=== PATIENT | female | born 1970 | race Caucasian/White ===

== ENCOUNTER 2018-11-10 14:33 | Inpatient (IN) | payer OTHER ==
[2018-11-10] MEDS ORDERED: NITROGLYCERIN (SL) 0.4 MG TAB SL (16:00)
[2018-11-10] MEDS ORDERED: hydrALAzine 20 MG INJ IV (16:00)
[2018-11-10] MEDS ORDERED: morphine 2 MG INJ IV (16:00)
[2018-11-10] MEDS ORDERED: NACL 0.9% 3 ML SYG IV (16:00)
[2018-11-10] MEDS ORDERED: ONDANSETRON 4 MG INJ IV (16:00)
[2018-11-10] MEDS ORDERED: ACETAMINOPHEN 325 MG TAB PO (16:00)
[2018-11-10] MEDS ORDERED: DOCUSATE SODIUM 100 MG CAP PO (16:00)
[2018-11-10] MEDS ORDERED: MAGNESIUM HYDROXIDE 30ML CUP PO (16:00)
[2018-11-10] MEDS ORDERED: LORAZEPAM 2 MG INJ IV (16:00)
[2018-11-10] MEDS ORDERED: HYDROCODONE/APAP (5/325) TAB PO (16:00)
[2018-11-10] MEDS ORDERED: ALBUTEROL/IPRATROPIUM (NEB) 3 ML AMP HHN (16:00)
[2018-11-10 16:41] LABS: INR 0.91; PROTIME 12.4 Sec (11.9-14.9)
[2018-11-10 16:42] LABS: PARTIAL THROMBOPLASTIN TIME 27.8 Sec (23.0-35.0)
[2018-11-10 17:00] LABS: FREE T4 (FREE THYROXINE) 1.26 ng/dl (0.64-1.79)
[2018-11-10] MEDS: SOD CHLORIDE 0.45% 1,000 ML IV (17:04)
[2018-11-10] MEDS: HEPARIN 5,000 UNIT/1 ML VIAL SC (22:04)
[2018-11-11 05:00] LABS: ADD MAN DIFF? NO
[2018-11-11 05:08] LABS: BASOPHILS % 0.7 % (0.0-2.0); EOSINOPHILS # 0.1 10^3/ul (0.0-0.5); EOSINOPHILS % 3.4 % (0.0-7.0); HEMATOCRIT 34.9 % (37.0-47.0); LYMPHOCYTES # 1.2 10^3/ul (0.8-2.9); LYMPHOCYTES % 28.5 % (15.0-51.0); MEAN CORPUSCULAR HEMOGLOBIN 24.6 pg (29.0-33.0); MEAN CORPUSCULAR HGB CONC 31.5 g/dl (32.0-37.0); MEAN CORPUSCULAR VOLUME 77.9 fl (82.0-101.0); MEAN PLATELET VOLUME 11.1 fl (7.4-10.4); MONOCYTE # 0.3 10^3/ul (0.3-0.9); MONOCYTES % 8.4 % (0.0-11.0); NEUTROPHIL # 2.4 10^3/ul (1.6-7.5); NEUTROPHILS % 58.8 % (39.0-77.0); PLATELET COUNT 249 10^3/UL (140-415); RED BLOOD COUNT 4.48 10^6/ul (4.20-5.40); RED CELL DISTRIBUTION WIDTH 16.8 % (11.5-14.5)
[2018-11-11 05:08] LABS: WHITE BLOOD COUNT 4.1 10^3/ul (4.8-10.8)
[2018-11-11] MEDS: SOD CHLORIDE 0.45% 1,000 ML IV ×3 (05:23→22:31)
[2018-11-11] MEDS: PANTOPRAZOLE (EC) 40 MG TAB PO (05:24)
[2018-11-11 05:39] LABS: ALANINE AMINOTRANSFERASE 908 IU/L (13-69); ALBUMIN 3.4 g/dl (3.3-4.9); ALBUMIN/GLOBULIN RATIO 1.06; ALKALINE PHOSPHATASE 223 IU/L (42-121); ANION GAP 6 (5-13); BILIRUBIN,INDIRECT 1.4 mg/dl (0-1.1); BILIRUBIN,TOTAL 1.4 mg/dl (0.2-1.3); BLOOD UREA NITROGEN 8 mg/dl (7-20); CALCIUM 9.3 mg/dl (8.4-10.2); CARBON DIOXIDE 28 mmol/L (21-31); CHLORIDE 105 mmol/L (97-110); CREATININE 0.51 mg/dl (0.44-1.00); Estimated GFR > 60 mL/min (>60); GLUCOSE 96 mg/dl (70-220); POTASSIUM 3.2 mmol/L (3.5-5.1); SODIUM 139 mmol/L (135-144); TOTAL PROTEIN 6.6 g/dl (6.1-8.1)
[2018-11-11 05:44] LABS: PHOSPHORUS 3.1 mg/dl (2.5-4.9)
[2018-11-11 05:44] LABS: CHOL/HDL RATIO 2.4 RATIO; CHOLESTEROL 187 mg/dl (100-200); HDL CHOLESTEROL 77 mg/dl (37-92); LDL CHOLESTEROL,CALCULATED 83 mg/dl; MAGNESIUM 2.2 mg/dl (1.7-2.5); TRIGLYCERIDES 133 mg/dl (0-149)
[2018-11-11 05:53] LABS: ASPARTATE AMINO TRANSFERASE 855 IU/L (15-46)
[2018-11-11] MEDS: POTASSIUM CHLORIDE (SR) 20 MEQ TAB PO (06:18)
[2018-11-11 06:23] LABS: HEMOGLOBIN A1C 5.5 % (0-5.9)
[2018-11-11] MEDS: HEPARIN 5,000 UNIT/1 ML VIAL SC ×2 (08:54→21:27)
[2018-11-11] MEDS ORDERED: POTASSIUM CHLORIDE (SR) 20 MEQ TAB PO (12:43)
[2018-11-11 13:07] LABS: ALANINE AMINOTRANSFERASE 916 IU/L (13-69); ALBUMIN 3.5 g/dl (3.3-4.9); ALKALINE PHOSPHATASE 247 IU/L (42-121); BILIRUBIN,INDIRECT 1.3 mg/dl (0-1.1); BILIRUBIN,TOTAL 1.3 mg/dl (0.2-1.3); TOTAL PROTEIN 6.5 g/dl (6.1-8.1)
[2018-11-11 13:14] LABS: ASPARTATE AMINO TRANSFERASE 874 IU/L (15-46)
[2018-11-11 14:45] LABS: HEPATITIS B SURFACE ANTIGEN NEGATIVE (NEGATIVE)
[2018-11-11 15:03] LABS: HEPATITIS B CORE ANTIBODY NEGATIVE (NEGATIVE); HEPATITIS C VIRAL ANTIBODY NEGATIVE (NEGATIVE)
[2018-11-11 15:43] LABS: HEPATITIS B SURFACE ANTIBODY NEGATIVE (NEGATIVE)
[2018-11-12 05:15] LABS: ADD MAN DIFF? NO
[2018-11-12 05:33] LABS: BASOPHILS % 0.6 % (0.0-2.0); EOSINOPHILS # 0.3 10^3/ul (0.0-0.5); EOSINOPHILS % 4.8 % (0.0-7.0); HEMATOCRIT 36.1 % (37.0-47.0); HEMOGLOBIN 11.4 g/dl (12.0-16.0); LYMPHOCYTES # 1.8 10^3/ul (0.8-2.9); LYMPHOCYTES % 35.1 % (15.0-51.0); MEAN CORPUSCULAR HEMOGLOBIN 24.8 pg (29.0-33.0); MEAN CORPUSCULAR HGB CONC 31.6 g/dl (32.0-37.0); MEAN CORPUSCULAR VOLUME 78.6 fl (82.0-101.0); MEAN PLATELET VOLUME 11.2 fl (7.4-10.4); MONOCYTE # 0.5 10^3/ul (0.3-0.9); MONOCYTES % 9.4 % (0.0-11.0); NEUTROPHIL # 2.6 10^3/ul (1.6-7.5); NEUTROPHILS % 49.7 % (39.0-77.0); PLATELET COUNT 249 10^3/UL (140-415); RED BLOOD COUNT 4.59 10^6/ul (4.20-5.40); RED CELL DISTRIBUTION WIDTH 16.9 % (11.5-14.5)
[2018-11-12 05:33] LABS: WHITE BLOOD COUNT 5.2 10^3/ul (4.8-10.8)
[2018-11-12] MEDS: PANTOPRAZOLE (EC) 40 MG TAB PO (05:43)
[2018-11-12] MEDS: HEPARIN 5,000 UNIT/1 ML VIAL SC (09:55)
[2018-11-12] MEDS: SOD CHLORIDE 0.45% 1,000 ML IV (13:21)
[2018-11-13 12:03] LABS: MITOCHONDRIAL TB NEGATIVE (NEGATIVE); SMOOTH MUSCLE AB SCREEN NEGATIVE (NEGATIVE)
[2018-11-14 13:38] LABS: ANA PATTERN NUCLEOLAR; ANA SCREEN POSITIVE (NEGATIVE); ANA TITER 1:40 titer
== END 2018-11-12 20:00 | disposition home or self-care (01) | DRG 446 ==
LOC: MS1 14:33
PROVIDERS: Hospitalist
DX: K80.50 Calculus of bile duct without cholangitis or cholecystitis without obstruction (principal)
CPT/HCPCS: 74181; 80053; 80061; 80076; 83036; 83735; 84100; 84439; 84443; 85025; 85610; 85730; 86038; 86255; 86704; 86706; 86803; 87340